=== PATIENT | male | born 1975 | race Two or more races ===

== ENCOUNTER 2019-10-18 13:55 | Emergency (ER) | payer SELFPAY ==
[~2019-10-18] VITALS: Ht 170.2 cm; Wt 83.7 kg
[2019-10-18 14:01] VITALS: Ht 170.2 cm; Wt 83.7 kg
[2019-10-18 14:47] LABS: BASOPHIL % 0.1 % (0-2); PLATELET COUNT 195 x10^3mcL (130-400)
[2019-10-18 14:48] LABS: microscopic required? YES; urine erythrocyte 1+ (NEGATIVE)
[2019-10-18 15:42] LABS: CALCIUM 8.8 mg/dL (8.5-10.1); CARBON DIOXIDE 26.2 mmol/L (21-32); CHLORIDE SERUM 99 mmol/L (98-107); CREATININE SERUM 0.9 mg/dL (0.7-1.3); GFR1 > 60 mL/min; GLUCOSE SERUM 101 mg/dL (74-106); POTASSIUM SERUM 3.3 mmol/L (3.5-5.1); SODIUM SERUM 135 mmol/L (136-145)
[2019-10-18 15:47] LABS: ALKALINE PHOSPHATASE 69 U/L (46-116); ALT/SGPT 40 U/L (16-63); AST/SGOT 19 U/L (15-37); BILIRUBIN TOTAL 0.9 mg/dL (0.20-1.00)
[2019-10-18 16:22] VITALS: BP 116/52
== END 2019-10-18 16:22 | disposition home or self-care (01) ==
LOC: ED 13:55
PROVIDERS: Emergency Medicine
DX: N12 Tubulo-interstitial nephritis, not specified as acute or chronic (principal)
CPT/HCPCS: 36415; 87804